=== PATIENT | male | born 1960 | race Caucasian/White ===

== ENCOUNTER 2020-12-14 05:40 | Outpatient (CLI) | payer OTHER ==
[~2020-12-14] VITALS: Ht 182.9 cm; Wt 132.0 kg
[2020-12-14] MEDS ORDERED: ALLO100T PO (13:29)
[2020-12-14] MEDS ORDERED: ATOR10TA66 PO (13:29)
== END 2020-12-14 15:22 | disposition home or self-care (01) ==
LOC: PREOP 05:40
PROVIDERS: ATTEND Surgery
DX: Z01.818 Encounter for other preprocedural examination (principal)

== ENCOUNTER 2020-12-21 09:22 | Day surgery (SDC) | payer OTHER ==
[~2020-12-21] VITALS: Ht 182.9 cm; Wt 132.0 kg
[~2020-12-21 09:22] MED LIST: ALLO100T PO; ATOR10TA66 PO; LACTATED RINGERS 1,000 ML IV ONE
[2020-12-21] MEDS ORDERED: LACTATED RINGERS 1,000 ML IV STA (09:30)
[2020-12-21 09:40] VITALS: BP 132/97
--- NOTE | 2020-12-21 09:54 | Progress Note-Pre Operative ---
Pre-Operative Progress Note H&P Reviewed The H&P was reviewed, patient examined and no changes noted. Date Seen by Provider: December 21, 2020 Time Seen by Provider: 09:53 Date H&P Reviewed: December 21, 2020 Time H&P Reviewed: 09:53 Pre-Operative Diagnosis: screening colonoscopy ALICE GOODWIN DO December 21, 2020 09:54
[2020-12-21] MEDS ORDERED: PROPOFOL INJECTION 50 ML IV ONE ×2 (10:38→11:20)
[2020-12-21] MEDS ORDERED: MIDAZOLAM 2 MG/2 ML (VERSED) VIAL ONE (10:38)
[2020-12-21 11:45] VITALS: BP 117/75
[2020-12-21 11:50] VITALS: BP 127/60
[2020-12-21 11:55] VITALS: BP 115/64
[2020-12-21 12:03] VITALS: BP 121/68
[2020-12-21 12:35] VITALS: BP 127/68
--- NOTE | 2020-12-21 13:07 | Discharge Inst-Simple/Standard ---
Discharge Inst-Standard Patient Instructions/Follow Up Plan of Care/Instructions/FU: 2 weeks Morgan Activity as Tolerated: Yes Discharge Diet: Regular Diet ALICE GOODWIN DO December 21, 2020 13:07
--- NOTE | 2020-12-21 13:07 | Progress Note-Post Operative ---
Post-Operative Progess Note Surgeon (s)/Secondary Spanish Teacher (s) Surgeon ALICE GOODWIN DO Secondary Spanish Teacher: na Pre-Operative Diagnosis screening colonoscopy Post-Operative Diagnosis colon polyps Procedure & Operative Findings Date of Procedure 12/21/20 Procedure Performed/Findings colonoscopy c hot bx polypectomy x 2 Anesthesia Type per welder 2nd shift Estimated Blood Loss Estimated blood loss (mL): none Specimens/Packing Specimens Removed colon polyps ALICE GOODWIN DO December 21, 2020 13:07
--- NOTE | 2020-12-21 14:51 | Anesthesia-General Post-Op ---
MAC Patient Condition Mental Status/LOC: Same as Preop Cardiovascular: Satisfactory Nausea/Vomiting: Absent Respiratory: Satisfactory Pain: Controlled Complications: Absent Post Op Complications Complications None Follow Up Care/Instructions Patient Instructions None needed. Anesthesiology Discharge Order Discharge Order Patient is doing well, no complaints, stable vital signs, no apparent adverse anesthesia problems. No complications reported per nursing. TERESITA NARAYAN CRNA December 21, 2020 14:51
--- NOTE | 2020-12-21 17:35 | OPERATIVE REPORT ---
DATE OF SERVICE: 12/21/2020 PREOPERATIVE DIAGNOSIS: Screening colonoscopy. POSTOPERATIVE DIAGNOSIS: Colon polyps. PROCEDURES PERFORMED: Colonoscopy with hot biopsy polypectomy x2. SURGEON: Alice Eduardo DO. ANESTHESIA: Per SKIN TOGGLER. ESTIMATED BLOOD LOSS: None. COMPLICATIONS: None. SPECIMENS: Descending and sigmoid colon polyp. INDICATIONS FOR PROCEDURE: The patient is a 60-year-old male due for screening colonoscopy. He understands the risks and benefits of the procedure and wished to proceed. Consent was signed in the chart. DESCRIPTION OF PROCEDURE: The patient was taken to the endoscopy suite and placed in a left lateral recumbent position. Timeout was performed. A digital rectal exam was performed. There were no palpable polyps, masses or ulcerations. Scope was inserted in the rectum and advanced all the way to cecum with minimal difficulty. Prep was adequate. Scope was then slowly retracted back. There were no polyps, masses or ulcerations in the cecum, ascending, transverse colon. In the descending colon, a small polyp was present, which hot biopsy polypectomy was performed. Scope was continuously retracted back into the sigmoid, which another small polyp was encountered, which hot biopsy polypectomy was performed. Scope was then continuously retracted back into the rectum, where it was also retroflexed noting no other pathology. The scope was returned to its normal position, slowly withdrawn until completely removed. The patient tolerated the procedure well without any complications and taken to the recovery room in stable condition. RECOMMENDATIONS: The patient will need repeat colonoscopy in 5 years. Any issues before that be seen at that time. The patient will follow up in the office to discuss pathology results. Job ID: [id number] DocumentID: [id number] Dictated Date: 12/21/2020 13:09:46 Data Security Administrator Date: 12/21/2020 17:35:29 Dictated By: ALICE EDUARDO DO
== END 2020-12-21 12:35 | disposition home or self-care (01) ==
LOC: ENDO 09:22
PROVIDERS: ATTEND Surgery
DX: Z12.11 Encounter for screening for malignant neoplasm of colon (principal); D12.4 Benign neoplasm of descending colon; D12.5 Benign neoplasm of sigmoid colon; E66.9 Obesity, unspecified; Z68.39 Body mass index [BMI] 39.0-39.9, adult; Z79.899 Other long term (current) drug therapy
CPT/HCPCS: 88305